=== PATIENT | female | born 1975 | race Caucasian/White ===

== ENCOUNTER → 2020-05-18 | Outpatient (CLI) | payer BC ==
[~2020-05-18] MED LIST: DOCU100C50 PO; GINGKO BILOBA PO; HYDR-3241 PO; IBUP-1222 PO; LEVO75TA PO; ONDA4TAB10 PO; UBID100C24 PO; VITAMIN B COMPLEX PO
== END | disposition home or self-care (01) ==
LOC: MERGE 13:11 → CFH 13:11
PROVIDERS: ATTEND Internal Medicine Cardiovascular Disease
DX: Z13.6 Encounter for screening for cardiovascular disorders (principal); I25.10 Atherosclerotic heart disease of native coronary artery without angina pectoris; R06.02 Shortness of breath; I70.90 Unspecified atherosclerosis
CPT/HCPCS: 75571

== ENCOUNTER 2020-06-01 06:33 | Outpatient (CLI) | payer BC | END 2020-06-01 23:59 | disposition home or self-care (01) | LOC: CVU 06:33 → MERGE 07:00 → CVU 23:59 | PROVIDERS: ATTEND Internal Medicine Cardiovascular Disease | DX: R06.02 Shortness of breath (principal); I70.90 Unspecified atherosclerosis; E78.00 Pure hypercholesterolemia, unspecified | CPT/HCPCS: 93880; 94060; 94726; 94729 ==